=== PATIENT | female | born 1945 | race Caucasian/White ===

== ENCOUNTER 2025-04-10 06:41 | Observation (INO) ==
--- NOTE | 2025-03-09 12:22 | PAT Medication Instructions ---
Medication Instructions Date of Service March 09, 2025 Home Medications Medication Instructions Recorded biotin 2,500 mcg capsule 2,500 mcg PO DAILY #90 caps 10/12/24 kzvkairv-nqoo-nptd 8 mg-folic 400 1 tab PO DAILY #30 tabs 10/12/24 mcg-K 50 mcg-lutein 300 mcg tablet (Centrum Silver Women) nadolol 20 mg tablet 20 mg PO DAILY #90 tabs 10/12/24 warfarin 5 mg tablet 5 mg PO .COMPLEX #90 tabs 10/13/24 warfarin 7.5 mg tablet 7.5 mg .Route .COMPLEX #90 tabs 10/13/24 lancets (Accu-Chek Softclix #100 ea 01/09/25 Lancets) miscellaneous medical supply #1 ea 01/09/25 venlafaxine 75 mg capsule,extended 75 mg PO DAILY #90 caps 01/17/25 release 24 hr semaglutide 0.25 mg or 0.5 mg (2 0.5 mg (0.736 mL) subcut Q7D #3 mL 02/14/25 mg/3 mL) subcutaneous pen injector (Ozempic) biotin 2,500 mcg capsule 2,500 mcg PO DAILY Centrum Silver Women) 1 tab PO DAILY nadolol 20 mg tablet 20 mg PO DAILY warfarin 5 mg tablet 5 mg PO .COMPLEX warfarin 7.5 mg tablet 7.5 mg .Route .COMPLEX venlafaxine 75 mg capsule,extended release 24 hr 75 mg PO DAILY semaglutide 0.25 mg or 0.5 mg (2 mg/3 mL) subcutaneous pen injector (Ozempic) 0.5 mg (0.736 mL) subcut Q7D ASK your prescriber and surgeon warfarin 5 mg tablet 5 mg PO .COMPLEX warfarin 7.5 mg tablet 7.5 mg .Route .COMPLEX DO NOT take the morning of surgery biotin 2,500 mcg capsule 2,500 mcg PO DAILY Centrum Silver Women) 1 tab PO DAILY Take morning of surgery With a small sip of water, OTHERWISE NOTHING TO EAT OR DRINK AFTER MIDNIGHT: nadolol 20 mg tablet 20 mg PO DAILY venlafaxine 75 mg capsule,extended release 24 hr 75 mg PO DAILY STOP 7 days prior to surgery semaglutide 0.25 mg or 0.5 mg (2 mg/3 mL) subcutaneous pen injector (Ozempic) 0.5 mg (0.736 mL) subcut Q7D Other Notes If you have any questions please call us at [phone] or [phone] or [phone] or [phone]
--- NOTE | 2025-03-15 11:27 | Anesthesiology Consultation ---
Date of Service March 15, 2025 Assessment & Plan (1) Encounter for pre-operative examination: - Check BSG DOS - Check coags DOS (warfarin instructions per surgeon/prescriber- patient states she received instructions to hold warfarin 5 days before surgery; not bridging). - Outpatient joint assessment: Pt currently scheduled for inpatient pathway. If surgeon requests review for outpatient joint pathway, patient is not recommended candidate for outpatient joint program from anesthesia standpoint based on available information. - GLP-1 medication instructions: Patient informed by PAT to stop 7 days prior to surgery- voiced understanding. DOS 04/10. Advised last dose to be 7/3. - Preop CXR: Done 03/16/25; notes "moderate cardiomegaly with mild pulmonary vascular congestion.. IMPRESSION: Mild CHF." Workload note sent to PCP regarding preop CXR- Awaiting CXR response + upcoming office visit [facility]). Patient otherwise acceptable risk for surgery. Chart Review Chart Review: Patient seen in Pre Admission Testing Teaching & Discussion Pre-Anesthesia Teaching/Discussion Notes: Instructed NPO after midnight before surgery,except medications with 15 cc of water. Medication instructions provided according to the PAT guidelines. History Surgery Operation Date: 04/10/25 10:50 Proposed Procedures p Right Total Hip Arthroplasty - Juan Spain MD Height/Weight Height: 5 ft Weight: 111.9 kg Allergies Allergy/AdvReac Type Severity Reaction Status Date / Time No Known Allergies Allergy Verified 03/08/25 09:28 Medications Home Medications Medication Instructions Recorded Confirmed Last Taken biotin 2,500 mcg capsule 2,500 mcg PO DAILY #90 caps 10/12/24 03/08/25 Unknown zkcbodjd-hccx-wree 8 mg-folic 400 1 tab PO DAILY #30 tabs 10/12/24 03/08/25 Unknown mcg-K 50 mcg-lutein 300 mcg tablet (Centrum Silver Women) nadolol 20 mg tablet 20 mg PO DAILY #90 tabs 10/12/24 03/08/25 Unknown warfarin 5 mg tablet 5 mg PO .COMPLEX #90 tabs 10/13/24 03/08/25 Unknown warfarin 7.5 mg tablet 7.5 mg .Route .COMPLEX #90 tabs 10/13/24 03/08/25 Unknown lancets (Accu-Chek Softclix #100 ea 01/09/25 02/13/25 Unknown Lancets) miscellaneous medical supply #1 ea 01/09/25 02/13/25 Unknown venlafaxine 75 mg capsule,extended 75 mg PO DAILY #90 caps 01/17/25 03/08/25 Unknown release 24 hr semaglutide 0.25 mg or 0.5 mg (2 0.5 mg (0.736 mL) subcut Q7D #3 mL 02/14/25 03/08/25 Unknown mg/3 mL) subcutaneous pen injector (Ozempic) Past Medical History Medical History Anxiety Atrial fibrillation Dx 20+ years ago Taking warfarin PCP monitoring Diabetes Dyslipidemia Glaucoma Left eye History of COVID-19 (08/2023) Hospitalized overnight for IV fluids; resolved HTN (hypertension) Hyperalgesia Lower extremities Macular degeneration Right eye Morbid obesity Osteoarthritis Exercise / Class Metabolic Activity III < 4 Walking/Shop/Light housework (uses walker) Past Family History Family History Father Lung cancer Mother Gallbladder disease Heart disease Denies family history of Ovarian cancer Prostate cancer Myocardial infarction Breast cancer Colorectal cancer Past Surgical History Surgical History History of esophagogastroduodenoscopy (EGD) History of lumpectomy of left breast benign; left History of oral surgery permanent dentures, bottom Hx of colonoscopy Status post foot surgery Status post hysterectomy Past Anesthesia History Other ("Cold" post-op, "took a lot to put under" with one remote surgery) * Mother: post-op hallucinations History of PONV No Hx of PONV and No Hx of Motion Sickness Social History Smoking Status: Never smoker Do You Dip or Chew Tobacco: No Hx Alcohol Use: No Hx Substance Use: No substance use type: does not use Review of Systems Patient denies chest pain, shortness of breath, fever, chills, cough, wheezing, palpitations. Physical Exam Vital Signs BP 112/82 P 70 TEMP 98.3 SP02 97%RA RESP 18 Physical Full cervical extension range of motion. Full TMJ range of motion. TMD 3 finger breaths Mallampati Score III Dentition: lower plate attached to posts, upper front denture "glued in" Lungs: clear throughout to auscultation Cardiac: regular rate, irregular rhythm, no murmurs noted Spine: normal Carotid arteries: negative bruit Extremities: no LE edema Lab Results Anesthesia Preop Results Results Anesthesia Widget: WBC 8.18 K/ul (4.8-10.8) 03/15/25 Hgb 13.4 g/dl (12.0-16.0) 03/15/25 Hct 39.9 % (37.0-47.0) 03/15/25 Plt 243 K/uL (130-400) 03/15/25 Na 139 mmol/L (136-145) 03/15/25 K 4.1 mmol/L (3.5-5.1) 03/15/25 Cl 104 mmol/L (98-107) 03/15/25 CO2 28 mmol/L (21-32) 03/15/25 BUN 18 mg/dl (6-23) 03/15/25 Creat 0.79 mg/dl (0.6-1.2) 03/15/25 Glucose Level 104 mg/dl (70-99(Fasting)) H 03/15/25 PT 25.2 Seconds (9.0-12.0) H 03/15/25 PTT 41 Seconds (21-31) H 03/15/25 INR 2.5 (0.9-1.1) H 03/15/25 Blood Type A Positive 03/15/25 Antibody Screen NEGATIVE 03/15/25 Testing Laboratory Results 01/09/25 HGBA1C 6.2% Electrocardiogram Date: 03/15/25 A. fib at 66bpm. RBBB. Chest X-Ray Date: 03/15/25 FINDINGS: There is moderate cardiomegaly with mild pulmonary vascular congestion. No consolidation or pleural effusion. IMPRESSION: Mild CHF.
--- NOTE | 2025-04-02 20:50 | History & Physical Report ---
Date of Service April 02, 2025 Assessment & Plan (1) Osteoarthritis, hip, bilateral: 79-year-old female with multiple medical comorbidities including significant obesity and diabetes with advanced right hip arthritis. She has failed conservative measures. She is having trouble getting around. She like to have her hip fixed. Plan: We are going to take her to the operating room to do a right total hip replacement. The risks and benefits of this procedure were explained. Informed consent was obtained. She will hold her Coumadin 5 days preop. Ozempic will be held a week before surgery. She is hoping to be discharged to a [facility] facility or rehab as she is and lives alone. Will use Coumadin for DVT prophylaxis. (2) Morbid obesity: (3) (HFpEF) heart failure with preserved ejection fraction: (4) Dyslipidemia: (5) Diabetes: (6) Atrial fibrillation: History of Present Illness Chief Complaint: Right hip pain, discomfort, and stiffness. Primary Care Provider: Delon Matute DO . The patient is a 79-year-old female who presents for surgical treatment of right hip. She has a 3 to 4-year history of increasing right hip pain discomfort which gradually gotten worse over time. She got saw Dr. Sierra who referred her here for hip replacement surgery. She takes Tylenol with minimal relief. Describes groin pain and difficulty lifting her leg. She does have some intermittent sciatica symptoms as well. She use a walker to get around for the past year and a half. Like to have her hip fixed. She is diabetic and takes Ozempic. Allergies Allergy/AdvReac Type Severity Reaction Status Date / Time No Known Allergies Allergy Verified 03/29/25 09:40 Home Medications Medication Instructions Recorded Confirmed Type biotin 2,500 mcg capsule 2,500 mcg PO DAILY #90 caps 10/12/24 03/29/25 Rx nzrldefc-dyid-kyjo 8 mg-folic 400 1 tab PO DAILY #30 tabs 10/12/24 03/29/25 Rx mcg-K 50 mcg-lutein 300 mcg tablet (Centrum Silver Women) nadolol 20 mg tablet 20 mg PO DAILY #90 tabs 10/12/24 03/29/25 Rx warfarin 7.5 mg tablet 7.5 mg .Route .COMPLEX #90 tabs 10/13/24 03/29/25 Rx lancets (Accu-Chek Softclix #100 ea 01/09/25 03/29/25 Rx Lancets) miscellaneous medical supply #1 ea 01/09/25 03/29/25 Rx venlafaxine 75 mg capsule,extended 75 mg PO DAILY #90 caps 01/17/25 03/29/25 Rx release 24 hr semaglutide 0.25 mg or 0.5 mg (2 0.5 mg (0.736 mL) subcut Q7D #3 mL 02/14/25 03/29/25 Rx mg/3 mL) subcutaneous pen injector (Ozempic) furosemide 20 mg tablet 20 mg PO DAILY #30 tabs 03/20/25 03/29/25 Rx warfarin 5 mg tablet 5 mg PO .COMPLEX #90 tabs 03/27/25 03/29/25 Rx Past Med/Surg History Problem List Morbid obesity (HFpEF) heart failure with preserved ejection fraction Encounter for pre-operative examination Constipation Hyperalgesia Lower extremities Osteoarthritis, hip, 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 Anxiety Dyslipidemia Statin intolerance Macular degeneration of right eye Glaucoma Left eye Diabetes Atrial fibrillation Arthritis Medical History Hyperalgesia Lower extremities History of COVID-19 (08/2023) Hospitalized overnight for IV fluids; resolved Macular degeneration Right eye HTN (hypertension) Glaucoma Left eye Osteoarthritis Surgical History History of lumpectomy of left breast benign; left History of esophagogastroduodenoscopy (EGD) Hx of colonoscopy History of oral surgery permanent dentures, bottom Status post hysterectomy Status post foot surgery Family History Father Lung cancer Mother Gallbladder disease Heart disease Denies family history of Ovarian cancer Prostate cancer Myocardial infarction Breast cancer Colorectal cancer Social History Smoking Status: Never smoker Second Hand Exposure: No; Do You Dip or Chew Tobacco: No; Hx Alcohol Use: No Hx Substance Use: No Preferred Language: Tamaz[place] Communication Ability: Effective Visual Impairment: Partially Limited Hearing Ability: Normal 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 Physical Exam . Physical examination reveals a pleasant elderly female. Looks to be in reasonably good health. She is a moderately obese. Examination of the right hip reveal patient walks with a wheeled walker. That she does limp on the side. Leg lengths. Pretty equal. She has a very stiff hip with internal rotation to -10. She is tender palpate anywhere around the leg. Some mild diffuse edema. She is neurologically intact. Negative straight leg raise. Constitutional WD/WN, vitals as above Respiratory normal respiratory effort, lungs clear to auscultation Cardiovascular RRR, no murmur, no edema Gastrointestinal (Abdomen) normal bowel sounds, soft, nontender, no hepatosplenomegaly Results & Data Results & Data Laboratory Results . Diagnostic Findings . X-rays of the right hip were reviewed. She has advanced right hip arthritis. She got concentric loss of joint space. Complete cartilage loss. Diffuse osteopenia mild to moderate. She is got some moderate left hip arthritis. PG Care Time/CCT Total # of Minutes Spent Total Time Spent with Patient: Total time spent is greater than 50% in coordination of care (as documented) at patient's floor/unit and/or counseling patient: Coding Level of Care Code None Diagnoses Osteoarthritis, hip, bilateral M16.0 Morbid obesity E66.01 (HFpEF) heart failure with preserved ejection fraction I50.30 Dyslipidemia E78.5 Diabetes E11.9 Atrial fibrillation I48.91
[~2025-04-10 06:41] MED LIST: BUPIVACAINE 0.5 % 5 MG/1 ML PF 10ML VIAL ONE
[2025-04-10] MEDS: METOCLOPRAMIDE HCL 10 MG TABLET PO SCH (07:19)
[2025-04-10] MEDS: ACETAMINOPHEN 500 MG TAB PO SCH ×2 (07:19→13:37)
[2025-04-10] MEDS: LR 60ML/HR IV SCH (07:19)
[2025-04-10] MEDS: CeleBREX 200 MG CAP PO SCH (07:19)
[2025-04-10] MEDS: FAMOTIDINE 20 MG TAB PO SCH (07:19)
[2025-04-10] MEDS: LR 500ML BOLUS, THEN 15ML/HR IV SCH (07:35)
[2025-04-10] MEDS ORDERED: PROPOFOL IV EMULSION 10 MG/ML 20 ML VIAL IV ONE (07:38)
[2025-04-10] MEDS ORDERED: MIDAZOLAM HCL 1 MG/ML 2ML VIAL ONE ×2 (07:38)
[2025-04-10] MEDS ORDERED: LIDOCAINE 2% 2 ML VIAL/AMP(20MG/ML) INFIL ONE (07:38)
[2025-04-10] MEDS ORDERED: ONDANSETRON INJ 2 MG/ML 2 ML VIAL ONE (07:38)
[2025-04-10] MEDS: dexAMETHasone**PF** 10 MG/ML VIAL IV SCH (07:42)
[2025-04-10 07:50] LABS: INR 1.1 (0.9-1.1); Partial Thromboplastin Time 29 Seconds (21-31); Prothrombin Time 12.1 Seconds (9.0-12.0)
--- NOTE | 2025-04-10 08:35 | History & Physical Bridge Note ---
Date of Service April 10, 2025 History & Physical Bridge Note I have examined the patient, reviewed the History & Physical and in the interval since the performance of the History & Physical I have noted the following changes of clinical significance: no changes noted
[2025-04-10] MEDS: TRANEXAMIC ACID 1,000 MG **IV Pre-op IV SCH (08:51)
[2025-04-10] MEDS ORDERED: ATROPINE SULFATE 0.1 MG/ML 10ML SYR IV PRN (09:20)
[2025-04-10] MEDS ORDERED: ePHEDrine sulfate 50 MG/5 ML SYR ONE (09:29)
[2025-04-10] MEDS: BUPIVACAINE/EPINEPHRINE 0.5% MPF 1:200,000 30 ML VIAL ONE (10:31)
--- NOTE | 2025-04-10 11:05 | Operative Report ---
PG Post Operative Report Pre & Post Diagnosis Operation Date: 04/10/25 08:50 Pre-Op Diagnosis: Right Hip Arthritis Post-Op Diagnosis: Right Hip Arthritis I identified the patient and participated in the time-out.: Yes Procedure Operation Date: 04/10/25 08:50 Actual Procedures p Right Total Hip Arthroplasty(Right) - Juan Spain MD Surgeon Juan Spain MD Research Chemical Engineer Carlos Corbin PA-C Estimated Blood Loss 150 Findings Consistent with Post-Op Diagnosis Specimens Right femoral head sent for pathology. Anesthesia Type Spinal MAC Complications none Disposition Accompanied Patient To Recovery: No Indications The patient is a 79-year-old female who has had a several year history of increasing right hip pain discomfort has become more debilitating the point where she has had to use a walker to get around. X-rays show advanced hip arthritis. She failed all conservative measures. She was strongly desiring hip arthroplasty. Description of Procedure Operative implants consist of: 1. Biomet G7 size 52 mm acetabular shell. 2. 6.5 cancellous acetabular screws 1 of 35 mm in length and 1 to 30 mm length. 3. [place] hole finishing inspector. 4. Highly cross-linked polyethylene liner with a 52 mm outer diameter and a 36 mm diameter. 5. DePuy Karaya size 12 short neck 125 degree angle femoral stem. 6. +1.5/36 mm ceramic articular ball. The patient was taken to the op room, identified, placed on the operating table in the supine position. All conductors were appropriately padded. IV antibiotics arrived by anesthesia team. Spinal anesthetic had been implemented holding area. A Pastrana catheter was placed in sterile fashion. The patient was then placed in the left lateral decubitus position. An axillary roll was placed. Distal Birkett position was used for positioning. The right hip and leg were then prepped and draped in usual sterile fashion. A posterolateral approach of the right hip was then performed through a curvilinear incision centered over the greater trochanter. Sharp dissection was Through subcutaneous tissues down to level the IT band gluteal fascia. The IT band gluteal fascia was incised longitudinally in line with skin incision. The underlying greater bursa was excised. The piriformis and external rotators along with the posterior hip joint capsule were then released in the posterior aspect the hip as a single layer. Great care was taken throughout the procedure protect the sciatic nerve at all times. The hip was internally rotated and dislocated. A femoral neck osteotomy cut was made with a Final Cut about 10 mm above the lesser trochanter. Femoral head was removed and sent for pathology. The femur was retracted anteriorly. Attention then drawn the acetabulum. The acetabular labrum was a fairly ossified. I did excise what was present. The pulmonary fat was excised. Sequential reaming the acetabular was then performed again with size 45 and progressing up to 51. I reamed a little bit with a 52 reamer and then placed a 52 mm Biomet G7 acetabular shell in about 4 degrees lateral opening and 20 degrees of anteversion. It was fixed with two 6.5 screws. A trial liner was placed. Attention then drawn the femur. The proximal femur was entered with a cookie cutter followed by canal finder. I then broached begin with size 8 and progressing up to a 12. Get excellent fit the 12. I did not think I could safely put a bigger stem in. We trialed the hip with the standard KLA implant but the soft tissue tension was too tight there. We decided to use the short neck. We placed the short neck and even the +5 articular ball was too tight. We used a +1.5 and provided excellent stability, appropriate soft tissue tension and equal leg lengths. We elected place these implants. All trial implants were removed. An apex hole finishing inspector was placed. Highly cross-linked polyethylene liner was placed. A size 12 KLA short neck 125 degree angle femoral stem was impacted in position. A +1.5/36 mm ceramic articular ball was placed. Hip was located. Was found to be stable. Attention drawn toward closing. The wound was irrigated cosigns pulsatile lavage solution. I did inject locally with 60 cc of half percent Marcaine with epinephrine. The posterior capsule and external rotators were then repaired to drawls in the posterior trochanter with #2 Tycron suture. The IT band gluteal fascia then closed in 1 PDS suture in running fashion. Subcutaneous tissues then closed with 2 layers of the deep layer #2 Vicryl suture in the subcutaneous tissues with 2-0 Dexon suture in a buried interrupted fashion. Skin was then closed with skin reji. A Prevena VAC dressing was applied due to the very large soft tissue envelope. The patient was then transferred to the recovery room in stable condition. The patient tolerated the procedure well and there were no complications. Carlos Corbin, my physician speech pathologist assistant, was present for the entire procedure. His assistance was required for proper patient positioning, prepping draping, surgical exposure, retraction, perform the technical details of the operation, placement of the implants, closure of the incision site, and placement of postoperative sterile bandage. I attest to the content of the Intraoperative Record and any orders documented therein. Any exceptions are noted below.
--- NOTE | 2025-04-10 11:33 | XRay Report ---
SINGLE VIEW PELVIS; SINGLE VIEW RIGHT HIP CLINICAL HISTORY: Postoperative examination. FINDINGS: An AP portable view of the hips and pelvis with a crosstable lateral portable view of the r ight hip are compared to study dated 10/21/2024. A bipolar right hip arthroplasty is in near-anatomic alignment. At least 2 cortical lag screws transfix the acetabular cup. No acute fracture is identifie d. There are expected postoperative changes overlying the right hip including skin clips, subcutaneou s gas, and soft tissue swelling. 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 Degenerative sclerosis is noted in the sacroiliac joints. A Pastrana catheter is in place. IMPRESSION: Expected postoperative findings status post right hip arthroplasty. No acute fracture is seen. ACT 112: Negative or not required by law. Electronically signed by: Mitchel Medina M.D. 04/10/2025 11:31 AM
[2025-04-10] MEDS ORDERED: PHARMACY GLYCEMIC MGMT CONSULT PRN (12:28)
[2025-04-10] MEDS ORDERED: METOCLOPRAMIDE HCL INJ 5 MG/ML 2 ML VIAL IV PRN (12:28)
[2025-04-10] MEDS ORDERED: ALUMINUM/MAGNESIUM SUSP 30 ML UDC PO PRN (12:28)
[2025-04-10] MEDS ORDERED: DEXTROSE 50% 50 ML SYRINGE IV PRN (12:28)
[2025-04-10] MEDS ORDERED: GLUCOSE 40% GEL 15 GM TUBE PO PRN (12:28)
[2025-04-10] MEDS ORDERED: CARBOHYDRATES FOR HYPOGLYCEMIA PO PRN (12:28)
[2025-04-10] MEDS ORDERED: GLUCOSE 10 TAB/TUBE PO PRN (12:28)
[2025-04-10] MEDS ORDERED: ONDANSETRON INJ 2 MG/ML 2 ML VIAL IV PRN (12:28)
[2025-04-10] MEDS ORDERED: HYDROmorphone INJ 0.5 MG/0.5 ML SYR IV PRN (12:28)
[2025-04-10] MEDS ORDERED: NALOXONE HCL 0.4 MG/1 ML VIAL/CARP IV PRN (12:28)
[2025-04-10] MEDS ORDERED: GLUCAGON FOR INJ 1 MG VIAL SQ PRN (12:28)
[2025-04-10] MEDS ORDERED: MAGNESIUM HYDROXIDE SUSP 30 ML UDC PO PRN (12:28)
--- NOTE | 2025-04-10 12:39 | Anesthesiology Progress Note ---
Date of Service April 10, 2025 Anesthesia Post Procedure Vital Signs Vital Signs: Temp Pulse Pulse Resp BP BP Pulse Ox 04/10/25 12:00 60 14 108/60 97 04/10/25 11:45 57 L 12 121/60 98 04/10/25 11:30 36.4 C L 61 13 109/63 98 04/10/25 11:20 61 18 106/66 100 04/10/25 11:10 64 18 108/58 L 100 04/10/25 11:00 36.2 C L 67 24 110/63 99 04/10/25 07:06 36.8 C 62 16 141/80 H 98 O2 Del Method O2 Flow Rate 04/10/25 12:00 Room Air 04/10/25 11:45 Room Air 04/10/25 11:30 Room Air 04/10/25 11:20 Oxymask 2 04/10/25 11:10 Oxymask 6 04/10/25 11:00 Oxymask 6 04/10/25 07:06 Room Air Pain Intensity Right Hip: Pain Intensity: 0 Transfer of Care Handoff Completed per policy Notes Mental Status: alert / awake / arousable and participated in evaluation Nausea / Vomiting: adequately controlled Pain: adequately controlled Airway Patency, RR, SpO2: stable & adequate BP & HR: stable & adequate Hydration State: stable & adequate Neuraxial Anesthesia: was administered and sensory block is resolving Anesthetic Complications: no major complications apparent and Pt Satisfied with anesthetic care
[2025-04-10] MEDS: INSULIN ASPART PER UNIT CHARGE SC SCH (13:29)
--- NOTE | 2025-04-10 13:30 | Pharmacy Report ---
Pharmacy Glycemic Short Note 2 - Date of Service April 10, 2025 - Glycemic Short BSG Results (Last 24 hours): 04/10/25 04/10/25 08:37 11:03 POC Glucose 94 135 H OUTPATIENT ANTIDIABETIC REGIMEN: * semaglutide 0.5 mg SQ weekly ASSESSMENT: * 79 year old s/p surgery, POD 0 - pharmacy consulted for glycemic management. Postop BSG 135 mg/dL - Did receive IV steroids preop and then also ordered IV steroids x 1 dose tomorrow AM. Reasonable to start novolog for now. Will plan to add on Lantus scale for later in case blood sugars start to trend upward from steroids. PLAN FOR INPATIENT GLYCEMIC CONTROL: * Hold outpatient oral diabetes medications * Basal insulin * Lantus 0-10 units with dinner * Bolus insulin * NovoLog per scale ACHS or Q6hrs while NPO * Goal Range: Low 110 mg/dL - High 140 mg/dL * Correction Factor: 20 mg/dL/unit * Nutritional / Prandial insulin per carb ratio of 1 unit per 7 grams CHO consumed
[2025-04-10] MEDS: KETOROLAC TROMETHAMINE 15 MG/ML VIAL IV SCH (13:39)
[2025-04-10] MEDS: SODIUM CHLORIDE 0.9% 1,000 ML IV SCH (13:39)
[2025-04-10] MEDS: ASCORBIC ACID 500 MG TAB PO SCH (16:52)
[2025-04-10] MEDS: WARFARIN SOD 10 MG TAB PO ONE (16:52)
[2025-04-10] MEDS: TRANEXAMIC ACID / 0.7% NACL 1,000 MG/100 ML BAG IV SCH (17:06)
[2025-04-10] MEDS: LANTUS PER UNIT CHARGE SC SCH (17:14)
[2025-04-10] MEDS: SENNA 8.6 MG TAB PO SCH (21:24)
[2025-04-10] MEDS: DOCUSATE SODIUM 100 MG CAP PO SCH (21:24)
[2025-04-11 07:13] LABS: Hematocrit (blood only) 35.1 % (37.0-47.0); Hemoglobin 12.0 g/dl (12.0-16.0); Immature Granulocytes # (auto) 0.06 K/uL (0.01-0.20); Immature Granulocytes % (auto) 0.5 %; Mean Corpuscular Hemoglobin 29.3 pg (25.0-34.0); Mean Corpuscular Volume 85.6 fL (80.0-100.0); Platelet Count 220 K/uL (130-400); RDW Standard Deviation 42.4 fL (36.4-46.3); Red Blood Count 4.10 M/uL (4.20-5.40); White Blood Count 11.75 K/ul (4.8-10.8)
[2025-04-11 07:29] LABS: Anion Gap 6.0 (3-11); Blood Urea Nitrogen 16.0 mg/dl (6-23); Calcium 8.6 mg/dl (8.6-10.3); Carbon Dioxide 28.0 mmol/L (21-32); Chloride 105.0 mmol/L (98-107); Creatinine Clr Calc Pharmacy 61.5 ml/min; Glucose 118.0 mg/dl (70-99(Fasting)); Potassium 3.9 mmol/L (3.5-5.1); Sodium 139.0 mmol/L (136-145)
[2025-04-11 07:31] VITALS: O2SAT 98
[2025-04-11 07:36] LABS: INR 1.2 (0.9-1.1); Prothrombin Time 12.4 Seconds (9.0-12.0)
[2025-04-11] MEDS: FUROSEMIDE 20 MG TAB PO SCH (08:02)
--- NOTE | 2025-04-11 08:18 | Orthopedic Progress Note ---
Date of Service April 11, 2025 Assessment & Plan (1) S/P total right hip arthroplasty: * Continue Current Treatment * Disposition: Home vs Rehab * Daily treatment: Physical Therapy/ Occupational Therapy per protocol * Weight bearing status: WBAT, precautions * Continue to monitor for ABLA * Pain control * DVT prophylaxis, ASA * Office/hospital f/u 2 weeks for progress check and staple/suture removal * Plan for discharge today pending PT/OT clearance Subjective . Active Problems: S/p right PAULY POD 1 79 y/o female s/p right PAULY. Doing well overall, pain managed and improved function. Denies fever/chills, chest pain/SOB, nausea/vomiting. Otherwise no complaints. Review of Systems All systems reviewed & are unremarkable except as noted in HPI & below. Physical Exam . * General: Alert and oriented, no acute distress * Constitutional: well-developed, well-nourished. * Respiratory: Normal respiratory effort, no distress * Gastrointestinal: No tenderness to palpation, no rigidity or guarding. * Skin: No rash or lesion. * Neurologic: Grossly normal * Musculoskeletal: Right hip surgical dressing CDI, Prevena intact and functioning, not removed for exam. Otherwise no obvious deformity or overlying skin changes. Diffuse TTP proximal thigh and hip region. Otherwise no specific tenderness of distal thigh, lower leg, foot/ankle. AROM hip flexion intact. AROM foot/ankle intact. Sensation intact plantar/dorsal foot. Brisk capillary refill. Results & Data Results & Data Laboratory Results . Diagnostic Findings . Hip/Pelvis X-Ray 04/10/25 11:04 SINGLE VIEW PELVIS; SINGLE VIEW RIGHT HIP CLINICAL HISTORY: Postoperative examination. FINDINGS: An AP portable view of the hips and pelvis with a crosstable lateral portable view of the right hip are compared to study dated 10/21/2024. A bipolar right hip arthroplasty is in near-anatomic alignment. At least 2 cortical lag screws transfix the acetabular cup. No acute fracture is identified. There are expected postoperative changes overlying the right hip including skin clips, subcutaneous gas, and soft tissue swelling. 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 Degenerative sclerosis is noted in the sacroiliac joints. A Pastrana catheter is in place. IMPRESSION: Expected postoperative findings status post right hip arthroplasty. No acute fracture is seen. ACT 112: Negative or not required by law. Electronically signed by: Mitchel Medina M.D. 04/10/2025 11:31 AM PG Care Time/CCT Total # of Minutes Spent Total Time Spent with Patient: Total time spent is greater than 50% in coordination of care (as documented) at patient's floor/unit and/or counseling patient: Coding Level of Care Code 99616 Post Operative Follow-Up Diagnoses S/P total right hip arthroplasty Z96.641
[2025-04-11] MEDS: dexAMETHasone 10 MG in SYRINGE 0 ML IV SCH (08:24)
[2025-04-11] MEDS: CEROVITE ADV FORMULA TAB PO SCH (08:32)
[2025-04-11] MEDS: VENLAFAXINE HCL XR 75 MG CAPXR PO SCH (08:32)
[2025-04-11] MEDS ORDERED: MULTIVITAMIN TAB PO SCH (09:00)
--- NOTE | 2025-04-11 11:01 | Pharmacy Report ---
Pharmacy Glycemic Short Note 2 - Date of Service April 11, 2025 - Glycemic Short BSG Results (Last 24 hours): 04/10/25 04/10/25 04/10/25 11:03 16:40 20:25 Glucose POC Glucose 135 H 136 H 138 H 04/11/25 04/11/25 06:37 07:37 Glucose 118 H POC Glucose 125 H OUTPATIENT ANTIDIABETIC REGIMEN: * semaglutide 0.5 mg SQ weekly * HbA1c 6.2% (01/09/25) ASSESSMENT: 04/11: * Kyleigh received 4 units of bolus insulin yesterday * Fasting BSG this AM within goal range, no basal insulin indicated at this time. * NovoLog appears appropriate at this time, will likely need loosened once steroid effects from today wear off. 04/10: * 79 year old s/p surgery, POD 0 - pharmacy consulted for glycemic management. Postop BSG 135 mg/dL - Did receive IV steroids preop and then also ordered IV steroids x 1 dose tomorrow AM. Reasonable to start novolog for now. Will plan to add on Lantus scale for later in case blood sugars start to trend upward from steroids. PLAN FOR INPATIENT GLYCEMIC CONTROL: * Hold outpatient oral diabetes medications * Basal insulin * hold * Bolus insulin * NovoLog per scale ACHS or Q6hrs while NPO * Goal Range: Low 110 mg/dL - High 140 mg/dL * Correction Factor: 20 mg/dL/unit * Nutritional / Prandial insulin per carb ratio of 1 unit per 7 grams CHO consumed
[2025-04-11] MEDS: DICLOFENAC SOD 1% GEL 100 GM TUBE EXT PRN (12:08)
[2025-04-11 13:41] VITALS: BP 159/93; PULSE 75; RESP 18; TEMP 97.7
[2025-04-11] MEDS: WARFARIN SOD 7.5 MG TAB PO SCH (15:44)
--- NOTE | 2025-04-13 08:41 | Discharge Summary ---
Date of Service April 13, 2025 Admission HPI (Per Admitting) . The patient is a 79-year-old female who presents for surgical treatment of right hip. She has a 3 to 4-year history of increasing right hip pain discomfort which gradually gotten worse over time. She got saw Dr. Sierra who referred her here for hip replacement surgery. She takes Tylenol with minimal relief. Describes groin pain and difficulty lifting her leg. She does have some intermittent sciatica symptoms as well. She use a walker to get around for the past year and a half. Like to have her hip fixed. She is diabetic and takes Ozempic. Admission Exam (Per Admitting) . Physical examination reveals a pleasant elderly female. Looks to be in reasonably good health. She is a moderately obese. Examination of the right hip reveal patient walks with a wheeled walker. That she does limp on the side. Leg lengths. Pretty equal. She has a very stiff hip with internal rotation to -10. She is tender palpate anywhere around the leg. Some mild diffuse edema. She is neurologically intact. Negative straight leg raise. Principal Diagnosis Same as "Discharge Diagnosis" noted below under Discharge Instructions. Discharge Exam . * General: Alert and oriented, no acute distress * Constitutional: well-developed, well-nourished. * Respiratory: Normal respiratory effort, no distress * Gastrointestinal: No tenderness to palpation, no rigidity or guarding. * Skin: No rash or lesion. * Neurologic: Grossly normal * Musculoskeletal: Right hip surgical dressing CDI, Prevena intact and functioning, not removed for exam. Otherwise no obvious deformity or overlying skin changes. Diffuse TTP proximal thigh and hip region. Otherwise no specific tenderness of distal thigh, lower leg, foot/ankle. AROM hip flexion intact. AROM foot/ankle intact. Sensation intact plantar/dorsal foot. Brisk capillary refill. Discharge Data Procedures Performed Operation Date: 04/10/25 08:50 Actual Procedures p Right Total Hip Arthroplasty(Right) - Juan Spain MD Hospital Course (1) S/P total right hip arthroplasty: Patient presents to hospital 04/10/2025 for above procedure. Procedure complete without complication. The following patient was admitted to hospital for observation, pain control, PT/OT clearance, discharge planning. No postoperative medical complications. PT/OT evaluation, patient cleared for home with home PT services. Patient medically stable for discharge and safe to return home. All questions answered. Patient will present to office for follow-up appointment with Dr. Spain team as scheduled. PG Care Time/CCT Total # of Minutes Spent Total Time Spent with Patient: Total time spent is greater than 50% in coordination of care (as documented) at patient's floor/unit and/or counseling patient: Discharge Plan Discharge Items Patient Disposition: Home - Home Health Services Reason For Visit: Right Hip Arthritis Discharge Diagnosis: Right Hip Replacement Activity: Per Instructions section Activity Comment: Follow/Obey hip precautions at all times. Weightbearing: Full weightbearing Weightbearing Comment: Weightbear as tolerated obeying hip precautions. Non-emergency contact: Surgeon Call non-emergency contact if: you have any medication questions Follow-up/Referrals: Delon Matute, [Primary Care Provider] - Diet: Carb Consistent or DM2 Addtl Attending Provider Instructions: ACTIVITY RECOMMENDATIONS: Diet: * You may resume previous diet. Physical Therapy: * Aggressive physical therapy is not usually needed. You will learn to take care of yourself safely and walk. * Follow the "Hip Precautions Instructions." * In some cases, the nephrology social worker at the hospital will arrange to have a therapist come to your house for the first couple of weeks to help you learn these skills. * You need to practice on your own or with the help of a family member as needed. * When you learn these skills, most of the therapy can be done on your own. Home Exercise: * You were shown a series of exercises in the hospital. Do these exercises three to four times each day including the exercises you were shown in physical therapy. Walking: * Get up and walk several times each day. For the first four weeks, try not to stand or walk for more than one hour at a time. If you do stand or walk for more than one hour, you will not hurt anything, but your leg will likely swell. * As you feel comfortable, you may change from the walker or crutches to a cane and then to independent walking. MEDICATIONS: New Medicine: * You will likely be taking one or more of these medicines: 1. Tramadol - Take, as directed, when you need it, every six hours to control your pain. 2. Coumadin - Thins your blood to lessen the chance of forming a blood clot. * The most common side effects of pain medicine and iron are nausea and constipation. If nausea or constipation is too much of a problem or if you have any questions about your new medicines or doses, call [facility] at . We will try to help you manage these issues. "VERY IMPORTANT TO READ AND REVIEW" Pain: * The immediate post-operative period after hip replacement surgery is often quite painful. * You are given a prescription for pain medicine. You should take it, as directed, when you need it, especially before physical therapy and before going to bed. Pain that interferes with sleep is very common and can last several months. * You will likely need pain medicine for the first two to four weeks. It will not stop all of the pain. The pain will lessen and as you feel better, you may change to milder pain medicine such as Tylenol. * The most common side effects of pain medicine are nausea and constipation, so don't take more than you need. SPECIAL CARE INSTRUCTIONS: TEDs/Elastic Stockings: * The white elastic stockings help limit swelling and prevent blood clots from forming in your legs. The more you wear them, the more they work. * Wear them for six weeks. Incision Site Care: * Remove dressing postoperative day 2 and then shower. Keep direct shower pressure off the incision site. * After showering, cover reji with dry gauze and change daily or more frequently if the dressing is getting saturated with drainage. * May completely stop using bandage if wound is dry and no drainage * Reji are removed between 2 and 3 weeks post-op. If your follow-up appointment is made before 2 weeks, please have your appointment re- scheduled. It is too early to remove the reji. Prevention of Infection: * Take antibiotics one hour before any dental cleaning, dental work, urological procedure, gastrointestinal procedure or any invasive surgery in order to prevent your new joint from getting infected. * You may get the antibiotics from the doctor performing the procedure or you may call our office at before and we will call in a prescription to the pharmacy of your choice. Things to Watch For: * Drainage from the incision site that occurs more than one week after your surgery. * Severely increased leg pain or swelling. * Increased redness at the incision site. * Fever above 102 degrees Fahrenheit. * Unusual chest pain or shortness of breath. * Unusual pain or burning with urination. Call [facility] at with any of the above problems or if you have any questions about your medicines or recovery. FOLLOW UP VISIT: Make an appointment to see your doctor for approximately two weeks after surgery for a progress check and staple removal by calling the office at . Pending Studies at Discharge: No Stand-Alone Forms: My [facility], Smoking Cessation Medications and DC Order Prescriptions: New tramadol 50 mg Tablet 50 - 100 mg PO Q6H PRN (Reason: pain) Qty: 40 0RF Continued warfarin 7.5 mg tablet 7.5 mg .ROUTE .COMPLEX Qty: 90 1RF Protocol: Dose Management Condition: Wednesday (Week One) Dose/Route: 7.5 mg Instruction: 1 x 7.5 mg tablet Condition: Wednesday Dose/Route: 7.5 mg Instruction: 1 x 7.5 mg tablet Condition: Wednesday Dose/Route: 5 mg Instruction: 1 x 5 mg tablet Condition: Wednesday Dose/Route: 5 mg Instruction: 1 x 5 mg tablet Condition: Dose/Route: 5 mg Instruction: 1 x 5 mg tablet Condition: Wednesday Dose/Route: 5 mg Instruction: 1 x 5 mg tablet Condition: Wednesday Dose/Route: 5 mg Instruction: 1 x 5 mg tablet Condition: Wednesday (Week Two) Dose/Route: 7.5 mg Instruction: 1 x 7.5 mg tablet Condition: Wednesday Dose/Route: 5 mg Instruction: 1 x 5 mg tablet Condition: Wednesday Dose/Route: 5 mg Instruction: 1 x 5 mg tablet Condition: Wednesday Dose/Route: 7.5 mg Instruction: 1 x 7.5 mg tablet Condition: Dose/Route: 5 mg Instruction: 1 x 5 mg tablet Condition: Wednesday Dose/Route: 5 mg Instruction: 1 x 5 mg tablet Condition: Wednesday Dose/Route: 5 mg Instruction: 1 x 5 mg tablet Protocol Text: Adjustment Start Date: Wednesday02/14/25 INR Value: 3.0 INR Date: 02/13/25 Recheck Date: 03/16/25 Rx Instructions: 7.5 mg /wed/; venlafaxine 75 mg capsule,extended release 24hr 75 mg PO DAILY Qty: 90 3RF Ozempic 0.25 mg or 0.5 mg (2 mg/3 mL) pen injector 0.5 mg subcut Q7D Qty: 3 2RF warfarin 5 mg tablet 5 mg PO .COMPLEX Qty: 90 3RF Protocol: Dose Management Condition: Wednesday (Week One) Dose/Route: 7.5 mg Instruction: 1 x 7.5 mg tablet Condition: Wednesday Dose/Route: 7.5 mg Instruction: 1 x 7.5 mg tablet Condition: Wednesday Dose/Route: 5 mg Instruction: 1 x 5 mg tablet Condition: Wednesday Dose/Route: 5 mg Instruction: 1 x 5 mg tablet Condition: Dose/Route: 5 mg Instruction: 1 x 5 mg tablet Condition: Wednesday Dose/Route: 5 mg Instruction: 1 x 5 mg tablet Condition: Wednesday Dose/Route: 5 mg Instruction: 1 x 5 mg tablet Condition: Wednesday (Week Two) Dose/Route: 7.5 mg Instruction: 1 x 7.5 mg tablet Condition: Wednesday Dose/Route: 5 mg Instruction: 1 x 5 mg tablet Condition: Wednesday Dose/Route: 5 mg Instruction: 1 x 5 mg tablet Condition: Wednesday Dose/Route: 7.5 mg Instruction: 1 x 7.5 mg tablet Condition: Dose/Route: 5 mg Instruction: 1 x 5 mg tablet Condition: Wednesday Dose/Route: 5 mg Instruction: 1 x 5 mg tablet Condition: Wednesday Dose/Route: 5 mg Instruction: 1 x 5 mg tablet Protocol Text: Adjustment Start Date: Wednesday02/14/25 INR Value: 3.0 INR Date: 02/13/25 Recheck Date: 03/16/25 Rx Instructions: 5 mg orally //wednesday/wednesday; furosemide 20 mg tablet 20 mg PO DAILY Qty: 30 0RF Rx Instructions: Take for 7 days leading up to next appt. nadolol 20 mg tablet 20 mg PO DAILY Qty: 90 3RF Centrum Silver Women 8 mg iron-400 mcg-50 mcg tablet 1 tab PO DAILY Qty: 30 0RF biotin 2,500 mcg capsule 2,500 mcg PO DAILY Qty: 90 2RF (DME) lancets [Accu-Chek Softclix Lancets] Misc See Rx Instructions .Route Qty: 100 2RF Rx Instructions: Check BG once daily (DME) miscellaneous medical supply Misc See Rx Instructions .Route Qty: 1 0RF Rx Instructions: Please provide one bedside rail. Admission Data Admit Date/Time: 04/10/25 11:04 Attending Provider: Juan Spain Admit Provider: Juan Spain Primary Care Provider: Delon Matute Other Interventions: Discharge Summary Assessment (RN) Last Done: 04/11/25 13:06
== END 2025-04-11 17:01 | disposition home health service (06) | DRG 470 ==
LOC: ASU 06:41 → 3E 11:04 → INTOOBSV 11:04